=== PATIENT | male | born 1985 | race African-American/Black ===

== ENCOUNTER 2018-02-06 22:35 | Emergency (ER) | payer MEDICAID ==
[~2018-02-06] VITALS: Ht 177.8 cm; Wt 82.0 kg
[2018-02-07] MEDS ORDERED: IBUPROFEN 600MG TABLET PO ONE (06:30)
[2018-02-07 09:37] VITALS: BP 128/87
== END 2018-02-07 09:42 | disposition home or self-care (01) ==
LOC: ER 22:35
DX: S02.2XXA Fracture of nasal bones, initial encounter for closed fracture (principal); J34.2 Deviated nasal septum; I10 Essential (primary) hypertension; M25.531 Pain in right wrist; M25.532 Pain in left wrist; Y08.89XA Assault by other specified means, initial encounter; Y93.89 Activity, other specified; Y92.89 Other specified places as the place of occurrence of the external cause; Y99.8 Other external cause status
CPT/HCPCS: 70450; 70486; 73110; 99284

== ENCOUNTER 2018-02-26 18:37 | Emergency (ER) | payer MEDICAID | END 2018-02-26 19:05 | disposition left against medical advice (07) | LOC: ER 18:37 | DX: R51 Headache (principal); Z53.21 Procedure and treatment not carried out due to patient leaving prior to being seen by health care provider ==

== ENCOUNTER 2018-05-10 17:17 | Emergency (ER) | payer MEDICAID ==
[~2018-05-10] VITALS: Ht 177.8 cm; Wt 82.0 kg
[2018-05-10 17:40] VITALS: BP 130/72
== END 2018-05-10 18:06 | disposition home or self-care (01) ==
LOC: ER 17:58
DX: T78.49XA Other allergy, initial encounter (principal); F12.10 Cannabis abuse, uncomplicated; W57.XXXA Bitten or stung by nonvenomous insect and other nonvenomous arthropods, initial encounter
CPT/HCPCS: 99283

== ENCOUNTER 2020-04-14 16:38 | Emergency (ER) | payer MEDICAID ==
[~2020-04-14] VITALS: Ht 177.8 cm; Wt 81.0 kg
[2020-04-14 16:45] VITALS: BP 146/79
[2020-04-14] MEDS ORDERED: IBUPROFEN 600MG TABLET PO ONE (18:15)
== END 2020-04-14 20:02 | disposition home or self-care (01) ==
LOC: ER 16:38
DX: S69.92XA Unspecified injury of left wrist, hand and finger(s), initial encounter (principal); F12.10 Cannabis abuse, uncomplicated; Y04.0XXA Assault by unarmed brawl or fight, initial encounter; Y93.89 Activity, other specified; Y92.89 Other specified places as the place of occurrence of the external cause
CPT/HCPCS: 29125; 73130; 99283

== ENCOUNTER 2020-06-12 02:17 | Emergency (ER) | payer MEDICAID ==
[~2020-06-12] VITALS: Ht 177.8 cm; Wt 77.0 kg
[2020-06-12] MEDS ORDERED: IBUPROFEN 600MG TABLET PO ONE (03:00)
[2020-06-12 03:09] VITALS: BP 154/70
== END 2020-06-12 04:45 | disposition home or self-care (01) ==
LOC: ER 02:44
DX: S60.222A Contusion of left hand, initial encounter (principal); S60.221A Contusion of right hand, initial encounter; F32.9 Major depressive disorder, single episode, unspecified; F20.9 Schizophrenia, unspecified; F12.10 Cannabis abuse, uncomplicated; Z91.018 Allergy to other foods; Y04.0XXA Assault by unarmed brawl or fight, initial encounter; Y93.89 Activity, other specified; Y92.89 Other specified places as the place of occurrence of the external cause
CPT/HCPCS: 29105; 73130; 99283